=== PATIENT | female | born 1975 ===

== ENCOUNTER → 2016-09-10 | Outpatient (REF) ==
--- NOTE | 2016-09-10 15:58 | REP ---
PARTIAL LUMBAR SPINE, THREE VIEWS: HISTORY: Degenerative disc disease. There is no acute fracture or subluxation. The L3-4 through L5-S1 intervertebral discs are decreased in height consistent with disc degeneration. Osteophytes are present on L2-S1. IMPRESSION: Degenerative change as described above. Signed by Mitul Sanchez MD 09/10/2016 04:04 P
--- NOTE | 2016-09-10 15:59 | REP ---
RIGHT HIP, TWO VIEWS: HISTORY: Degenerative joint disease. There is no acute fracture or dislocation. There is minimal narrowing of the joint space. There is minimal sclerosis of the acetabulum. IMPRESSION: Degenerative change as described above. Signed by Mitul Sanchez MD 09/10/2016 04:04 P
== END ==
LOC: M SMT 15:08
PROVIDERS: ATTEND Internal Medicine
DX: Z02.71 Encounter for disability determination (principal)